=== PATIENT | male | born 1965 | race Caucasian/White ===

== ENCOUNTER → 2018-03-03 07:30 | Outpatient (CLI) | payer OTHER, SELFPAY ==
[2018-03-03 09:07] LABS: Add Manual Diff / Slide Review NO; Basophils Percent Auto 1.2 % (0-2); Eosinophils Percent Auto 2.7 % (2-4); Hematocrit 44.5 % (41-53); Hemoglobin 15.1 g/dL (13.5-17.5); Lymphocytes Percent Auto 33.2 % (25-40); Mean Corpuscular Volume 91.2 fL (80-100); Monocytes Percent Auto 6.5 % (3-14); Neutrophils Absolute Auto 4100 /uL (3000-5900); Neutrophils Percent Auto 56.4 % (50-75); Platelet Count 174 X10^3/uL (150-400); Red Blood Cell Count 4.88 X10^6/uL (4.5-5.9); White Blood Cell Count 7.2 X10^3/uL (4.5-11.0)
[2018-03-03 09:24] LABS: Alanine Aminotransferase 31 IU/L (21-72); Albumin 4.4 g/dL (3.5-5.0); Albumin Globulin Ratio 1.6 (1.0-2.8); Alkaline Phosphatase 61 U/L (38-126); Aspartate Aminotransferase 31 IU/L (17-59); BUN Creatinine Ratio 16.7 (6-22); Bilirubin Total 0.8 mg/dL (0.2-1.3); Blood Urea Nitrogen 15 mg/dL (9-20); Calcium 9.4 mg/dL (8.4-10.2); Carbon Dioxide 31 mmol/L (22-32); Chloride 102 mmol/L (98-107); Cholesterol 189 mg/dL (140-199); Estimated Glomerular Filt Rate > 60.0 mL/min (>60); Globulin 2.7 g/dL (1.7-4.1); Glucose 95 mg/dL (70-100); HDL Cholesterol 59 mg/dL (40-60); HEMOLYSIS < 15 (0-50); LDL Cholesterol Calculated 112 mg/dL (<100); Potassium 4.2 mmol/L (3.4-5.1); Sodium 143 mmol/L (137-145); Total Protein 7.1 g/dL (6.3-8.2); Triglycerides 90 mg/dL (35-150)
[2018-03-03 09:28] LABS: Erythrocyte Sedimentation Rate 3 MM/HR (0-15)
[2018-03-03 09:56] LABS: Prostate Specific Antigen Scrn 0.517 ng/mL (0.1-4.0)
== END ==
PROVIDERS: Visit Provider Internal Medicine
DX: R19.7 Diarrhea, unspecified (principal); Z00.01 Encounter for general adult medical examination with abnormal findings; R63.4 Abnormal weight loss
CPT/HCPCS: 36415; 80053; 80061; 85025; 85651; G0103

== ENCOUNTER 2018-04-27 11:26 | Day surgery (SDC) | payer OTHER, SELFPAY ==
--- NOTE | 2018-04-27 | PATH_ITS ---
[facility] Accession Number: [id number] . 01 Material submitted: . PART A: TERMINAL ILEUM BIOPSIES PART B: RANDOM COLON BIOPSIES PART C: RANDOM COLON BIOPSIES . 02 Diagnosis: A. Terminal Ileum, Biopsies: Small bowel mucosa with no diagnostic abnormality. Negative for active inflammation, granulomas, dysplasia and malignancy. . B-C: Random Colon, Biopsies: Most consistent with collagenous colitis. Negative for granulomas, dysplasia and malignancy. MRV/04/28/2018 . 02 Electronically signed: . Nadia Cavazos MD, Pathologist NPI- [id number] . 01 Gross description: . Received three formalin-filled containers, each labeled with the patient's name: . A. In a container labeled terminal ileum, the specimen consists of two 0.1-0.2 cm portions of tissue, entirely submitted in cassette A. B. In a container labeled random colon biopsies, the specimen consists of a 0.2 cm portion of tissue, entirely submitted in cassette B. C. In a container labeled random biopsies, colon, are two 0.1-0.2 cm portions of tissue, entirely submitted in cassette C. ([id number]) /FRR . 02 Pathologist provided ICD-10: K52.89 . 02 CPT . 276887, 824896, [id number] Performed at: 01 [facility] [address] [id number] MD El Harris MD Phone: [phone] Performed at: 02 [facility] [address] [place], [place] [id number] MD Nadia Cavazos MD Phone: [phone]
[2018-04-27 11:55] VITALS: BP 115/72; PULSE 66; RESP 12; TEMP 36.2; O2SAT 100; BMI 20.9
--- NOTE | 2018-04-27 13:01 | PM.PREOP ---
Pre-operative Note Interval Note Pre-op Check: Yes History & Physical Reviewed by Physician and Yes Exam Performed Changes: No ASA Class (for procedural sedation): I
--- NOTE | 2018-04-27 13:02 | PM.OP.ENDO ---
Operative Date/Time/Diagnoses Date of procedure: 04/27/18 Time of procedure: 13:02 Pre-op diagnosis: All see indication and findings Post-op diagnosis: same Procedure & Clinicians Study performed: Colonoscopy Same procedure as scheduled: Yes Indications: Diarrhea Surgeon: Alejandra Ceballos Procedure Notes Procedure in detail: After informed consent was obtained the patient was placed left lateral decubitus position. The video colonoscope was introduced the rectum slowly advanced to the cecum. The IC valve was identified intubated. On slow withdrawal mucosa was carefully examined. The scope was removed. The patient tolerated the procedure well. Blood loss none Complications none Sedation Total sedation time 12 min Versed 7 mg fentanyl 100 mcg IV titration Findings 1. Normal terminal ileum. Biopsies taken 2. Normal colonoscopy. Random biopsies taken We will be in touch with marked regarding his biopsies and what the next steps are which may will include a capsule endoscopy to evaluate the remainder of her small bowel.
[2018-04-27] MEDS: fentaNYL 250 MCG/5 ML INJ IV (13:21)
[2018-04-27 13:22] VITALS: BP 101/55; PULSE 60; RESP 13; TEMP 36.5; O2SAT 97
[2018-04-27] MEDS: MIDAZOLAM 5 MG/5 ML VIAL IV (13:22)
--- NOTE | 2018-04-27 13:25 | SUR.PHASEI ---
MAR not reflecting normal saline infusion that is hanging on arrival to PACU. see I&O for total infused
[2018-04-27 13:27] VITALS: BP 101/50; PULSE 57; RESP 14; TEMP 36.4; O2SAT 97
[2018-04-27 13:30] VITALS: BP 99/57; PULSE 60; RESP 16; TEMP 36.6
[2018-04-27 13:35] VITALS: BP 100/68; PULSE 64; RESP 13; TEMP 36.6; O2SAT 97
== END 2018-04-27 14:00 | disposition home or self-care (01) ==
PROVIDERS: PCP Internal Medicine; Visit Provider Internal Medicine Gastroenterology
PROC: 0DJD8ZZ Inspection of Lower Intestinal Tract, Via Natural or Artificial Opening Endoscopic (ICD-10-PCS; CPT 45378; principal; 2018-04-27 12:30)
DX: K52.89 Other specified noninfective gastroenteritis and colitis (principal); R63.4 Abnormal weight loss; Z80.0 Family history of malignant neoplasm of digestive organs
CPT/HCPCS: 45380; J2250; J3010